=== PATIENT | female | born 1980 | race Caucasian/White ===

== ENCOUNTER → 2016-06-10 | Outpatient (CLI) | payer OTHER ==
[~2016-06-10] MED LIST: GADAVIST IV PRN
--- NOTE | 2016-06-12 12:32 | MAMMOGRAPHY REPORT ---
BREAST MRI OF BOTH BREASTS : 06/10/2016 CLINICAL HISTORY: 35-year-old woman presents for a follow-up MRI for probably benign enhancing foci within the left breast. COMPARISON: Comparison is made to exams dated: 05/01/2015 mammogram, 05/01/2015 ultrasound, 10/19/2015 ultrasound, 10/19/2015 mammogram, and 11/06/2015 breast MRI - [facility]. TECHNIQUE: Using a 1.5 Denisse magnet and dedicated breast coil, multisequence axial images were obtai wai through the breasts. After uneventful IV administration of 7 mL of Gadavist, dynamic multiphase contrast-enhanced axial images, and sagittal postcontrast were obtained. Temporal subtraction axia l images and 3-D MIP images are provided. Everything was then reviewed on a 3-D workstation, [employer]. FINDINGS: Right breast: There is minimal background parenchymal enhancement. There are a few subcentimeter T2 hyperintense cysts in the right breast. No new suspicious enhancing mass, non-mass enhancement, danielle spicious kinetics architectural distortion are identified in the right breast. There is no skin thi ckening or nipple retraction. No suspicious right axillary lymphadenopathy. Left breast: There is minimal background parenchymal enhancement. There are a few scattered subcent imeter T2 hyperintense cysts, most numerous in the left upper outer quadrant. The previously observ ed foci of enhancement within the left breast are less conspicuous. A 3 mm focus in the 12:00 middl e one third of the breast is decreased in prominence, confirming benignity. The ovoid enhancement i n the upper outer quadrant of the left breast is no longer identified, confirming benignity. No new suspicious enhancing mass, non-mass enhancement, suspicious kinetics or architectural distortion is seen in the left breast. There is no focal skin thickening or nipple retraction. The retromammary fat is intact. No suspicious left axillary lymphadenopathy. IMPRESSION: ACR BI-RADS CATEGORY 2: BENIGN 1. Decreased prominence and visualization of the previously described small enhancing foci in the l eft 12:00 and upper outer quadrants, confirming benignity. There is no MRI evidence of malignancy i n the breasts. 2. Would recommend annual screening mammography beginning at age 40 unless there is a new abnormali ty on clinical breast exam identified by the patient or her physician. The patient will receive written notification of the results. Tequila acevedo/:06/11/2016 21:54:14 Online Content Coordinator: gatehouse attendant, [facility] letter sent: Normal 1/2 BI-RADS Code: ACR BI-RADS Category 2: Benign
== END | disposition home or self-care (01) ==
LOC: C.MRI 07:20
PROVIDERS: ATTEND Nurse Practitioner Obstetrics & Gynecology
DX: N63 Unspecified lump in breast (principal)

== ENCOUNTER → 2017-08-19 | Outpatient (CLI) | payer OTHER ==
--- NOTE | 2017-08-19 11:22 | DIAGNOSTIC IMAGING REPORT ---
HYSTEROSALPINGOGRAM CLINICAL HISTORY: Infertility. COMPARISON STUDY: No previous studies for comparison. Fluoroscopy time: 0.7 minutes. FINDINGS: A hysterosalpingogram was performed by Dr. Nick. The cervix was cannulated and 50 cc of Optiray 300 was instilled. 3 fluoroscopic images were obtained. Images were obtained. Uterine morphology is within normal limits. The uterus is either retroverted or anteverted. Initially, no spillage was noted from the fallopian tubes. However, there was eventual spillage from the right fallopian tube. No spillage from the left fallopian tube with identified. Due to significant patient pain, no additional contrast was instilled. IMPRESSION: 1. Eventual spillage of contrast from the right fallopian tube indicating patency. 2. No spillage from the left fallopian tube. 3. Uterine morphology likely normal. Electronically signed by: Milo Iverson M.D. 08/19/2017 11:21 AM Dictated Date/Time: 08/19/2017 11:18 AM
--- NOTE | 2017-08-19 19:46 | OPERATIVE REPORT ---
DATE OF OPERATION: 08/19/2017 PREOPERATIVE DIAGNOSIS: Infertility. POSTOPERATIVE DIAGNOSIS: Infertility. PROCEDURE: Hystersalpingogram. SURGEON: Dr. Nick. ANESTHETIC: None. COMPLICATIONS: None. FINDINGS: Patent right fallopian tube, normal study otherwise. DISPOSITION: Stable. DESCRIPTION OF PROCEDURE: Reviewed the procedure with Rosi. Using sterile technique cervix was visualized with a speculum, grasped with a single tooth tenaculum and then dye was injected through the cervix. On fluoroscopy imaging we saw good view of the uterus which was normal. The right fallopian tube had good spill. The left tube did not have spill, but showed no abnormalities. The patient was having significant cramping so we stopped the procedure at this point. At the end of the procedure, sponge and instrument counts were correct. The patient tolerated it well. I attest to the content of the Intraoperative Record and any orders documented therein. Any exception s are noted below.
== END | disposition home or self-care (01) ==
LOC: C.RAD 10:41
PROVIDERS: ATTEND Obstetrics & Gynecology
DX: N97.9 Female infertility, unspecified (principal)

== ENCOUNTER 2018-09-18 03:51 | Inpatient (IN) ==
[2018-09-18] MEDS ORDERED: OXYTOCIN 30 UNITS/500 ML BAG IV PRN (04:57)
[2018-09-18 05:24] LABS: Hematocrit (blood only) 35.6 % (37-47); Hemoglobin 12.8 g/dL (12.0-16.0); Mean Corpuscular Volume 91.3 fL (80-100); Mean Platelet Volume 10.3 fL (7.4-10.4); Platelet Count 156 K/uL (130-400); RDW Coefficient of Variation 13.6 % (11.5-14.5); RDW Standard Deviation 44.6 fL (36.4-46.3); White Blood Count 9.64 K/uL (4.8-10.8)
--- NOTE | 2018-09-18 08:40 | Labor Progress Brief Note ---
Date of Service September 18, 2018 Subjective Assuming care of patient at change of shift. Breathing through contractions. LOF clear continues per patient and RN. Wants no intervention. Assessment & Plan (1) PROM (premature rupture of membranes): Patient is at best beginning latent labor right now, rare ctx and slow / minimal change. I had a lengthy discussion at the bedside about the recommended management of PROM. Per ACOG there is "no role for expectant management" in this situation, due to the lack of benefits and the risk of infection. We discussed the changes in infant care / monitoring for infection in the event that prolonged ROM is achieved before delivery. Patient prefers to continue expectant management. PROM onset of labor timing: onset of labor within 24 hours of rupture PROM gestational age: full term Qualified Code(s): O42.02 - Full-term premature rupture of membranes, onset of labor within 24 hours of rupture Present on Admission?: Yes Physical Exam Physical Exam: FHT Cat 1 [place] Q5-8 irregular Cvx 2/80/-2 Results & Data Vital Signs (Past 12 Hours) Vital Signs Temp Pulse Resp BP 09/18/18 06:31 36.8 C 20 09/18/18 06:30 67 128/87 09/18/18 04:01 76 131/76 09/18/18 03:59 36.9 C 20
--- NOTE | 2018-09-18 11:11 | Labor Progress Brief Note ---
Date of Service September 18, 2018 Subjective Breathing through contractions. Assessment & Plan (1) PROM (premature rupture of membranes): Continue to manage expectantly per patient wishes. Is making progress into spontaneous labor. PROM onset of labor timing: onset of labor within 24 hours of rupture PROM gestational age: full term Qualified Code(s): O42.02 - Full-term premature rupture of membranes, onset of labor within 24 hours of rupture Present on Admission?: Yes Physical Exam Physical Exam: 4100/-1 FHT Cat 1 [place] Q3-4 Results & Data Vital Signs (Past 12 Hours) Vital Signs Temp Pulse Resp BP 09/18/18 11:04 36.7 C 20 09/18/18 11:03 75 113/67 09/18/18 09:03 36.7 C 77 20 109/71 09/18/18 06:31 36.8 C 20 09/18/18 06:30 67 128/87 09/18/18 04:01 76 131/76 09/18/18 03:59 36.9 C 20
[2018-09-18] MEDS: LACTATED RINGER'S 1,000 ML IV PRN ×2 (11:50→12:57)
[2018-09-18] MEDS ORDERED: ePHEDrine sulfate 50 MG/ML AMP ONE (11:59)
[2018-09-18] MEDS ORDERED: BUPIVACAINE 0.25% 30 ML VIAL ONE (11:59)
[2018-09-18] MEDS ORDERED: fentaNYL citrate 100 MCG/2 ML VIAL ONE (11:59)
[2018-09-18] MEDS ORDERED: fentaNYL 2MCG/ML ROPIV 1.25MG/ML 100 ML BAG EPI ONE (12:00)
--- NOTE | 2018-09-18 12:10 | Anesthesiology Consultation ---
Date of Service September 18, 2018 Assessment & Plan Chart Review Chart Review: Patient NOT seen in Pre Admission Testing and Acceptable Risk for Labor Epidural Consults Requested none ASA ASA2 Proposed Anesthesia Anesthesia Type: Labor Epidural Risk / Benefits Reviewed With: PT / POA / Parent / Guardian, Accepts Plan and Informed Consent Obtained History Height/Weight Height: 1.7 m Weight: 89.358 kg Allergies Allergy/AdvReac Type Severity Reaction Status Date / Time No Known Allergies Allergy Unverified 09/18/18 06:05 Medications Home Medications Medication Instructions Recorded Confirmed Last Taken vit no.[id number] 1 tab PO DAILY 09/18/18 09/18/18 09/17/18 07:00 [ Vitamin] Active Medications Generic Name Dose Route Start Last Admin Trade Name Freq PRN Reason Stop Dose Admin Lactated Ringer's 1,000 mls @ 125 mls/hr 09/18/18 04:57 09/18/18 11:50 Lr IV 09/20/18 04:56 999 mls/hr .Q8H PRN Administration L&D Protocol Protocol NPO Date Last Intake of Fluids: 09/18/18 Time Last Intake of Fluids: 12:00 Date Last Intake of Solids: 09/18/18 Time Last Intake of Solids: 02:00 Past Medical History Medical History GERD (gastroesophageal reflux disease) Exercise / Class Metabolic Activity II 4-5 Yardwork/Stairs/Walk up hill Past Surgical History Surgical History H/O wisdom tooth extraction Past Anesthesia History No Hx of Anesthesia Complications and No Family Hx of Anesthesia Complications History of PONV No Hx of PONV and Hx of Motion Sickness Social History Smoking Status: Never smoker Do You Dip or Chew Tobacco: No Hx Alcohol Use: No Hx Substance Use: No Physical Exam Vital Signs Last Vital Signs Temp 36.7 C 09/18/18 11:04 Pulse 80 09/18/18 12:19 Resp 20 09/18/18 11:04 BP 127/85 09/18/18 12:19 Pulse Ox 98 09/18/18 12:18 ENMT Mouth: no TMJ abnormality and no TMJ clicking Thyromental Distance: > or= 3.5 Finger Breadths Mallampati Class: II Neck normal visual inspection; neck extension not limited Respiratory Auscultation: lungs clear to auscultation bilaterally Cardiovascular Rate/Rhythm: regular rate and regular rhythm Psychiatric Orientation: alert and oriented x 3 Testing Laboratory Results 09/18/18 05:11
--- NOTE | 2018-09-18 12:30 | Procedure Note ---
Vaginal Delivery Summary Date of Service September 18, 2018 Patient pushed to deliver a viable in OA position. The head restituted occiput left, and a tight double nuchal cord was reduced. Then, without any additional maternal effort, the shoulders spontaneously delivered followed by the rest of the body. The received tactile stim and bulb suction on the maternal abdomen while cord was doubly clamped and cut by FOB. Placenta S/I/3VC. A second degree tear was repaired with vicryl in the usual manner, including a crown stitch to rebuild the perineal body. The cervix was examined circumferentially and there were no cervical or vaginal tears. Due to EBL of 500, cytotec 1000mcg was administered rectally after counseling the patient on risks and benefits. The fundus was firm after each uterine massage and lochia had slowed to a trickle by end of procedure.
[2018-09-18] MEDS ORDERED: NALBUPHINE HCL INJ 10 MG/ML AMP IV PRN (13:03)
[2018-09-18] MEDS ORDERED: NALOXONE HCL 0.4 MG/1 ML VIAL/CARP IV PRN (13:03)
[2018-09-18] MEDS ORDERED: PROMETHAZINE HCL 12.5 MG in SODIUM CHLORIDE 0.9% 50 ML IV PRN (13:03)
[2018-09-18] MEDS ORDERED: ONDANSETRON INJ 2 MG/ML 2 ML VIAL IV PRN (13:03)
[2018-09-18] MEDS ORDERED: fentaNYL 2MCG/ML ROPIV 1.25MG/ML 100 ML BAG EPI PRN (13:03)
[2018-09-18] MEDS ORDERED: DiphenhydrAMINE HCL 50 MG/ML VIAL IV PRN (13:03)
[2018-09-18] MEDS ORDERED: NALOXONE HCL 1 MG in SODIUM CHLORIDE 0.9% 1000ML 1,000 ML IV PRN (13:03)
[2018-09-18] MEDS ORDERED: ePHEDrine sulfate 50 MG/ML AMP IV PRN (13:03)
--- NOTE | 2018-09-18 16:06 | Procedure Note ---
Vaginal Delivery Summary Date of Service September 18, 2018 Patient pushed to deliver a viable in ROP position. The head restituted occiput right. There was no nuchal cord. The shoulders spontaneously delivered followed by the rest of the body. The received tactile stim and bulb suction on the maternal abdomen while cord was doubly clamped and cut by FOB. Placenta did not deliver after multiple attempts at uterine massage and IV pitocin, therefore it was manually extracted, I/3VC. There were no lacerations of the cervix, vagina or perineum. The fundus was firm and lochia was minimal by end of procedure. EBL 250
[2018-09-18] MEDS ORDERED: AMPICILLIN/SULBACTAM SOD 3,000 MG in 0.9 % SODIUM CHLORIDE 100 ML IV ONE (16:15)
[2018-09-18] MEDS ORDERED: IBUPROFEN 600 MG TAB PO PRN (16:17)
[2018-09-18] MEDS ORDERED: SUPERCREAM 0.870% 15 GM JAR EXT PRN (16:17)
[2018-09-18] MEDS ORDERED: BENZOCAINE 20% AER SPR 82.5 GM CAN EXT PRN (16:17)
[2018-09-18] MEDS ORDERED: DIPHTHERIA/TETANUS/PERTUSSIS 0.5 ML SYR/VIAL IM ONE (16:17)
[2018-09-18] MEDS ORDERED: HYDROCORTISONE ACETATE 25 MG SUPP PR PRN (16:17)
[2018-09-18] MEDS ORDERED: OXYCODONE/ACETAMINOPHEN 5mg/325mg TAB PO PRN (16:17)
--- NOTE | 2018-09-18 18:18 | Anesthesia Procedure Note ---
Date of Service September 18, 2018 Anesthesia Post Epidural Note Vital Signs Vital Signs: Temp Pulse Resp BP Pulse Ox 09/18/18 18:15 102 H 127/75 09/18/18 18:00 96 H 18 115/77 09/18/18 17:45 88 111/68 09/18/18 17:30 86 18 106/66 09/18/18 17:15 81 113/77 09/18/18 17:04 18 09/18/18 17:00 76 106/74 09/18/18 16:45 36.9 C 74 18 111/81 09/18/18 16:30 74 18 112/82 09/18/18 16:15 85 119/76 09/18/18 16:00 86 18 115/72 09/18/18 15:59 86 115/73 09/18/18 15:58 88 96 09/18/18 15:54 92 H 94 09/18/18 15:53 86 95 09/18/18 15:48 86 94 09/18/18 15:43 85 96 09/18/18 15:39 109 H 86 L 09/18/18 15:38 109 H 99 09/18/18 15:33 95 H 92 09/18/18 15:30 92 H 87 L 09/18/18 15:29 82 121/68 09/18/18 15:28 82 99 09/18/18 15:24 85 88 L 09/18/18 15:23 78 100 09/18/18 15:18 101 H 95 09/18/18 15:17 106 H 85 L 09/18/18 15:13 85 121/75 100 09/18/18 15:08 85 99 09/18/18 15:03 96 H 100 09/18/18 14:58 84 123/79 100 09/18/18 14:53 111 H 99 09/18/18 14:48 98 H 100 09/18/18 14:45 80 127/77 09/18/18 14:43 84 100 09/18/18 14:38 80 100 09/18/18 14:33 100 H 100 09/18/18 14:31 20 09/18/18 14:29 100 H 119/84 09/18/18 14:28 103 H 99 09/18/18 14:25 88 90 09/18/18 14:23 76 100 09/18/18 14:18 78 98 09/18/18 14:16 36.7 C 09/18/18 14:15 80 120/85 09/18/18 14:14 20 09/18/18 14:13 73 100 09/18/18 14:08 74 98 09/18/18 14:03 79 100 09/18/18 14:00 67 125/68 09/18/18 13:58 78 97 09/18/18 13:54 82 92 09/18/18 13:53 75 96 09/18/18 13:48 94 H 94 09/18/18 13:44 85 20 115/68 09/18/18 13:43 74 96 09/18/18 13:40 78 94 09/18/18 13:38 79 95 09/18/18 13:33 84 96 09/18/18 13:31 79 20 93 09/18/18 13:28 84 112/75 97 09/18/18 13:24 85 108/70 09/18/18 13:23 77 96 09/18/18 13:18 85 109/72 97 09/18/18 13:16 20 09/18/18 13:15 93 H 94/65 L 09/18/18 13:13 92 H 96 09/18/18 13:08 90 112/69 96 09/18/18 13:03 95 H 95 09/18/18 13:01 36.7 C 88 20 107/65 09/18/18 13:00 96 H 100/59 L 09/18/18 12:58 94 H 97 09/18/18 12:57 86 106/66 09/18/18 12:55 96 H 98/63 L 09/18/18 12:54 88 99/65 L 09/18/18 12:53 87 106/63 96 09/18/18 12:52 87 100/58 L 09/18/18 12:50 96 H 120/76 09/18/18 12:48 112 H 120/78 98 09/18/18 12:45 82 131/86 09/18/18 12:43 84 97 09/18/18 12:38 90 97 09/18/18 12:33 85 99 09/18/18 12:31 94 H 93 09/18/18 12:28 79 97 06/01/19 12:23 83 95 09/18/18 12:19 80 127/85 09/18/18 12:18 78 98 09/18/18 11:04 36.7 C 20 09/18/18 11:03 75 113/67 09/18/18 09:03 36.7 C 77 20 109/71 09/18/18 06:31 36.8 C 20 09/18/18 06:30 67 128/87 09/18/18 04:01 76 131/76 09/18/18 03:59 36.9 C 20 Pain Intensity Abdomen: Pain Intensity: 1 Notes Mental Status: alert / awake / arousable Patient Amnestic to Procedure: No Nausea / Vomiting: adequately controlled Pain: adequately controlled Airway Patency, RR, SpO2: stable & adequate BP & HR: stable & adequate Hydration State: stable & adequate Anesthetic Complications: no major complications apparent Epidural: Removed without complications and With tip intact Notes: Pt doing well. No complaints. Epidural site looks clean and dry without signs of edema or erythema. VSS
[2018-09-18] MEDS: DOCUSATE SODIUM 100 MG CAP PO SCH (20:52)
[2018-09-19] MEDS: ACETAMINOPHEN 325 MG TAB PO PRN ×2 (00:25→06:15)
[2018-09-19 06:30] LABS: Hematocrit (blood only) 35.9 % (37-47); Hemoglobin 12.7 g/dL (12.0-16.0); Mean Corpuscular Hgb Conc 35.4 g/dL (32-36); Mean Corpuscular Volume 91.8 fL (80-100); Mean Platelet Volume 10.4 fL (7.4-10.4); Platelet Count 148 K/uL (130-400); RDW Coefficient of Variation 13.8 % (11.5-14.5); RDW Standard Deviation 45.1 fL (36.4-46.3); Red Blood Count 3.91 M/uL (4.2-5.4); White Blood Count 12.52 K/uL (4.8-10.8)
--- NOTE | 2018-09-19 07:45 | Obstetrical Progress Note ---
Date of Service September 19, 2018 Assessment & Plan (1) PROM (premature rupture of membranes): Delivered vaginally, PPD1 and recovering normally. PROM onset of labor timing: onset of labor within 24 hours of rupture PROM gestational age: full term Qualified Code(s): O42.02 - Full-term premature rupture of membranes, onset of labor within 24 hours of rupture Present on Admission?: Yes Subjective Ambulation: ambulating normally Voiding: no voiding problems Passing Gas:: Yes Diet Tolerance:: regular diet Lochia:: Small Feeding Type:: breast feeding Current Pain Level(1-10): 0 Respiratory: no cough and no dyspnea Cardiovascular: no chest pain Breast: no problem reported Gastrointestinal: no nausea and no vomiting Genitourinary (male): no difficulty urinating Lochia decreasing Psychiatric: no depression Physical Exam Vital Signs (Past 24 Hours) Last Vital Signs Temp 36.6 C 09/19/18 03:30 Pulse 84 09/19/18 03:30 Resp 16 09/19/18 03:30 BP 107/70 09/19/18 03:30 Pulse Ox 98 09/19/18 03:30 Constitutional WD/WN, vitals as above no acute distress Respiratory normal respiratory effort and able to speak in complete sentences; no respiratory distress and does not use accessory muscles Cardiovascular Rate/Rhythm: regular rate and regular rhythm Extremities: no calf tenderness Negative Senait's Gastrointestinal (Abdomen) Post-gravid, fundus firm at umbilicus Psychiatric Affect: euthymic affect Genitourinary Speculum/Bimanual Exam: uterus nontender Results & Data Laboratory Results Laboratory Results - last 24 hr 09/19/18 06:10 WBC 12.52 H RBC 3.91 L Hgb 12.7 Hct 35.9 L MCV 91.8 MCH 32.5 MCHC 35.4 RDW Std Deviation 45.1 RDW Coeff of Rolando 13.8 Plt Count 148 MPV 10.4
[2018-09-19] MEDS ORDERED: PRENATAL VITAMIN 1 TAB PO SCH (09:00)
[2018-09-19] MEDS: DOCUSATE SODIUM 100 MG CAP PO SCH (09:21)
== END 2018-09-19 17:55 | disposition home or self-care (01) | DRG 807 ==
LOC: OPB 03:51 → 4S1 03:55 → 4S2 21:01